=== PATIENT | female | born 1950 | race Caucasian/White ===

== ENCOUNTER → 2018-10-30 | Outpatient (REF) | payer OTHER, MEDICARE | LOC: M SFHCPLAZ 11:57 | PROVIDERS: ATTEND Internal Medicine Infectious Disease | DX: A02.0 Salmonella enteritis (principal) ==

== ENCOUNTER → 2018-11-08 | Outpatient (REF) | payer MEDICARE | LOC: M SFHCPLAZ 12:32 | PROVIDERS: ATTEND Internal Medicine Infectious Disease | DX: A02.0 Salmonella enteritis (principal) ==

== ENCOUNTER → 2018-11-21 | Outpatient (REF) | payer MEDICARE | LOC: M SFHCPLAZ 14:04 | PROVIDERS: ATTEND Internal Medicine Infectious Disease | DX: A02.0 Salmonella enteritis (principal) ==

== ENCOUNTER → 2018-12-14 | Outpatient (REF) | payer MEDICARE | LOC: M SFHCPLAZ 10:13 | PROVIDERS: ATTEND Internal Medicine Infectious Disease | DX: A02.0 Salmonella enteritis (principal) | CPT/HCPCS: 87045; G0463 ==